=== PATIENT | male | born 1940 | race Caucasian/White ===

== ENCOUNTER 2018-11-30 10:46 | Observation (INO) ==
[2018-11-30] MEDS ORDERED: IOPAMIDOL 100 ML BOTTLE IV ONE (10:47)
--- NOTE | 2018-11-30 11:32 | Emergency Department Note ---
General Adult HPI - General Chief complaint: Bleeding Other Stated complaint: Coughing up blood Time Seen by Provider: 11/30/18 10:49 Source: patient Mode of arrival: ambulatory Limitations: no limitations - History of Present Illness HPI Narrative: Patient seen here 2 days ago for left lower lobe pneumonia and also had some hemoptysis. He is on Xarelto for A. fib. Denies any chest pain is complaining of cough with some shortness of breath denies upper respiratory type signs or symptoms been no nausea vomiting or diarrhea denies any urgency frequency dysuriaTemperature is 96.1 the pulse is 85 respirations are 18 blood pressure 133/77 pulse ox is 96% - Related Data Home Medications Medication Instructions Recorded Confirmed Tiotropium Rozel [Spiriva] 18 mcg INH QDAY 04/26/15 11/30/18 nitroglycerin 0.4 mg sublingual 0.4 mg SUBLINGUAL Q5-15MIN PRN tab 05/02/15 11/30/18 tablet Levalbuterol Tartrate [Xopenex Hfa] 90 mcg INHALATION Q6H g 09/03/15 11/30/18 levalbuterol 1.25 mg/3 mL solution 1.25 mg INHALATION QDAY PRN ml 12/03/15 11/30/18 for nebulization Loratadine [Allerclear] 10 mg PO DAILY 03/03/16 11/30/18 guaiFENesin [Mucus Relief] 400 mg PO TID 03/03/16 11/30/18 omega 8-jtg-pyn-fish oil 1,000 each PO .QD 07/05/16 11/30/18 beclomethasone dipropionate 80 2 puff INHALATION BID g 12/07/17 11/30/18 mcg/actuation aerosol inhaler fluticasone-salmeterol 230 mcg-21 2 puff INHALATION BID g 12/07/17 11/30/18 mcg/actuation HFA aerosol inhaler ferrous sulfate 325 mg (65 mg 325 mg PO QDAY tab 03/17/18 11/30/18 iron) tablet calcium carbonate 500 mg calcium 1,500 mg PO QDAY tab 03/24/18 11/30/18 (1,250 mg) tablet cholecalciferol (vitamin D3) 1,000 1,500 unit PO QDAY tab 06/01/18 02/07/19 unit tablet magnesium 200 mg tablet 400 mg PO QDAY tab 05/02/18 11/30/18 ascorbic acid (vitamin C) 500 mg 500 mg PO TID tab 09/04/18 11/30/18 tablet oxygen 2 unit INH HS 11/30/18 11/30/18 Previous Rx's Medication Instructions Recorded losartan 100 mg tablet 100 mg PO QDAY #90 tab 01/31/18 omeprazole 20 mg capsule,delayed 20 mg PO QDAY #90 cap 03/29/18 release ibandronate 150 mg tablet 150 mg PO QMONTH #4 tab 05/04/18 levothyroxine 25 mcg tablet 25 mcg PO QDAY #90 tab 05/04/18 ezetimibe 10 mg tablet 10 mg PO QDAY #90 tab 06/01/18 ranitidine 300 mg tablet 300 mg PO QHS #90 tab 06/01/18 metformin ER 500 mg 500 mg PO BID #180 tab 06/30/18 tablet,extended release 24 hr tamsulosin 0.4 mg capsule 0.4 mg PO QDAY #30 cap 09/04/18 bupropion HCl XL 150 mg 24 hr 150 mg PO QAM #90 tab 11/06/18 tablet, extended release rivaroxaban 20 mg tablet 20 mg PO QDAY #90 tab 11/06/18 Levofloxacin 500 mg PO DAILY 5 Days #5 tab 11/28/18 Allergies Allergy/AdvReac Type Severity Reaction Status Date / Time benzalkonium chloride Allergy Severe Itching Verified 11/30/18 10:46 [From TRAVATAN] brimonidine [From COMBIGAN] Allergy Severe Itching Verified 11/30/18 10:46 timolol [From COMBIGAN] Allergy Severe Itching Verified 11/30/18 10:46 travoprost [From TRAVATAN] Allergy Severe Itching Verified 11/30/18 10:46 hydrocodone AdvReac Severe unable to Verified 11/30/18 10:46 sleep, loss of appetite and anxiety Environmental Allergies Allergy Unknown Unknown Uncoded 11/28/18 12:53 Review of Systems All systems ED: reviewed and negative except as stated. Constitutional: Denies: fever, chills Eyes: Denies: eye pain ENT ED: Denies: ear pain Cardiovascular: Denies: chest pain Respiratory: Reports: as per HPI, shortness of breath, hemoptysis Gastrointestinal: Denies: abdominal pain, nausea Genitourinary: Denies: dysuria, frequency Musculoskeletal: Denies: back pain, joint swelling Integumentary: Denies: rash, lesions Neurological: Denies: headache, weakness Psychiatric: Denies: anxiety Past Medical History - Past Medical History Medical history: Reports: atrial fibrillation, COPD, DM (type 2 no insulin), hyperlipidemia, hypertension Psychiatric history: Reports: anxiety, depression Surgical history ED: Reports: non-contributory - Social History smoking status: Former smoker Alcohol use: Reports: None Drug use: Reports: none Physical Exam Limitations: no limitations Course Vital Signs Temperature 96.1 F L 11/30/18 10:46 Pulse Rate 85 11/30/18 10:46 Respiratory Rate 18 11/30/18 10:46 Blood Pressure 133/77 11/30/18 10:46 Pulse Oximetry (%) 96 11/30/18 10:46 Temperature 96.1 F L 11/30/18 10:46 Pulse Rate 92 H 11/30/18 14:11 Respiratory Rate 18 11/30/18 10:46 Blood Pressure 118/71 11/30/18 14:11 Pulse Oximetry (%) 96 11/30/18 14:11 Medical Decision Making - [facility] Narrative Medical decision making narrative: Patient initially had refused hospitalization 2 days ago is feeling he is willing to stay at this time he was concerned mostly about his hemoptysis CTA was negativeHis white count is 9300 hemoglobin 13.8 hematocrit 43.1 INR is 1.6 lactic acid is 1.3 chemistries are normal. Chest x-ray shows bilateral infiltrates particular on the left lower lobe. Patient willing to stay at this time to Miller consulted and patient to be admitted for observation. Blood cultures performed 2 days ago are negative thus far - Lab Data Result diagrams: 11/30/18 11:28 Lab Results 11/30/18 11/30/18 11/30/18 Range/Units 11:28 11:28 11:34 WBC 9.3 (4.5-11.0) K/mcL RBC 4.73 (4.50-5.90) M/mcL Hgb 13.8 (13.5-16.5) g/dL Hct 43.1 (41.0-55.0) % POC Hct 44.0 (41.0-55.0) % MCV 91.3 (80.0-100.0) fL MCH 29.3 (26.0-34.0) pg MCHC 32.1 (31.0-36.0) g/dL RDW 14.6 H (11.5-14.5) % Plt Count 217 (140-440) K/mcL MPV 7.9 (7.4-10.4) fL Gran % 73.8 (38.0-78.0) % Lymph % (Auto) 11.6 L (15.5-49.0) % Borden % (Auto) 11.1 (1.0-12.0) % Eos % (Auto) 3.0 (0.0-7.0) % Baso % (Auto) 0.5 (0.0-2.0) % Gran # 6.9 (1.8-8.0) K/mcL Lymph # (Auto) 1.1 L (1.5-4.8) K/mcL Borden # (Auto) 1.0 H (0.1-0.9) K/mcL Eos # (Auto) 0.3 (0.0-0.7) K/mcL Baso # (Auto) 0 (0.0-0.3) K/mcL PT 19.4 H (11.9-14.5) sec INR 1.6 H (0.9-1.1) VBG Lactic Acid (0.5-2.0) mmol/L POC Sodium 138 (133-145) mmol/L POC Potassium 3.4 (3.3-5.1) mmol/L POC Chloride 103 (96-108) mmol/L POC Total CO2 22 (22-30) mmol/L POC BUN 11 (8-23) mg/dl POC Creatinine 0.6 L (0.7-1.2) mg/dl POC Glucose 92 (70-105) mg/dL POC WB Ioniz Calcium 1.15 L (1.16-1.32) mmol/L 11/30/18 Range/Units 11:55 WBC (4.5-11.0) K/mcL RBC (4.50-5.90) M/mcL Hgb (13.5-16.5) g/dL Hct (41.0-55.0) % POC Hct (41.0-55.0) % MCV (80.0-100.0) fL MCH (26.0-34.0) pg MCHC (31.0-36.0) g/dL RDW (11.5-14.5) % Plt Count (140-440) K/mcL MPV (7.4-10.4) fL Gran % (38.0-78.0) % Lymph % (Auto) (15.5-49.0) % Borden % (Auto) (1.0-12.0) % Eos % (Auto) (0.0-7.0) % Baso % (Auto) (0.0-2.0) % Gran # (1.8-8.0) K/mcL Lymph # (Auto) (1.5-4.8) K/mcL Borden # (Auto) (0.1-0.9) K/mcL Eos # (Auto) (0.0-0.7) K/mcL Baso # (Auto) (0.0-0.3) K/mcL PT (11.9-14.5) sec INR (0.9-1.1) VBG Lactic Acid 1.3 (0.5-2.0) mmol/L POC Sodium (133-145) mmol/L POC Potassium (3.3-5.1) mmol/L POC Chloride (96-108) mmol/L POC Total CO2 (22-30) mmol/L POC BUN (8-23) mg/dl POC Creatinine (0.7-1.2) mg/dl POC Glucose (70-105) mg/dL POC WB Ioniz Calcium (1.16-1.32) mmol/L Disposition Pt seen by SYNTHETIC FILAMENT SPINNER/PA only: No Clinical Impression: Left lower lobe pneumonia Qualifiers: Pneumonia type: due to unspecified organism Qualified Code(s): J18.1 - Lobar pneumonia, unspecified organism Disposition: Xfer As Outpt/Obs ([facility]) Condition: Fair Referrals: Kirill Mccray MD [Primary Care Provider] - Time of Disposition: 14:30
--- NOTE | 2018-11-30 11:46 | XRay Report ---
HISTORY: Hemoptysis FINDINGS: There is a moderate-sized alveolar infiltrate in the left lower lobe. Subtle infiltrates are present in the right lower lobe and around both isabella. These are superimposed upon underlying COPD. The heart size is normal. There is a tiny left-sided pleural effusion. There has been no significant change since 11/28/18. IMPRESSION: Bilateral infiltrates with the greatest involvement in the left lower lobe. There has been no significant change Interpreted and Authenticated by: Lamine Camejo 11/30/18
[2018-11-30 11:56] LABS: Basophils # (Auto) 0 K/mcL (0.0-0.3); Basophils % (Auto) 0.5 % (0.0-2.0); Eosinophils # (Auto) 0.3 K/mcL (0.0-0.7); Granulocytes % (Auto) 73.8 % (38.0-78.0); Lymphocytes # (Auto) 1.1 K/mcL (1.5-4.8); Lymphocytes % (Auto) 11.6 % (15.5-49.0); Mean Cell Volume 91.3 fL (80.0-100.0); Mean Corpuscular HGB Conc 32.1 g/dL (31.0-36.0); Monocytes % (Auto) 11.1 % (1.0-12.0); Platelet Count 217 K/mcL (140-440); RBC 4.73 M/mcL (4.50-5.90); Red Cell Distribution Width 14.6 % (11.5-14.5)
--- NOTE | 2018-11-30 12:02 | Cat Scan Report ---
CLINICAL INFORMATION: Hemoptysis COMPARISON: 07/07/16 TECHNIQUE: Axial images obtained through the chest. intravenous contrast administration was administered, and scanning was performed during pulmonary arterial phase. Sagittally and coronally reformatted images were obtained. MIP reformatted images. The radiation exposure was limited using dose reduction technology. FINDINGS: The pulmonary arteries are normal with no intraluminal filling defects. The aorta is normal in caliber. There are scattered plaques along the wall of the aorta and in the coronary arteries. The heart is within upper limits of normal in size. Patient has mild to moderate centrilobular emphysema with the greatest involvement in the upper lobes. There is a moderate size consolidating infiltrate throughout the left lung. This has a patchy distribution. There is no apparent underlying mass. Bronchial partida in the left lung base are thickened due to inflammation. There is mild mucous plugging in some of the peripheral branches. A small layering left-sided pleural effusion is present. There is mild interstitial fibrosis centrally in the right lung which simulated a small infiltrate in the preceding chest x-ray. There are stable noncalcified peripheral lung nodules in the right middle lobe and anteriorly in the right lower lobe. The measure up to 5 mm in size. The have not enlarged since 2016 and represent incidental granulomata. There are a few reactive lymph nodes in the mediastinum. The largest is in the subcarinal space and measures 1.7 x 2.9 cm. There are small lymph nodes in both isabella. Lymphadenopathy was not seen in 2016. In the upper pole of left kidney there is a cyst which measures 2.8 cm. This has not enlarged. IMPRESSION: No evidence of pulmonary emboli Moderate left lower lobe pneumonia with associated lymphadenopathy Emphysema Small layering left-sided pleural effusion Ida Kathy was called with the results Interpreted and Authenticated by: Lamine Camejo 11/30/18
[2018-11-30] MEDS ORDERED: cefTRIAXone 1 GM in DEXTROSE 5% IN WATER 50 ML IV ONE (12:10)
[2018-11-30] MEDS ORDERED: LEVOFLOXACIN 500 MG/100 ML BAG IV ONE (12:10)
[2018-11-30] MEDS ORDERED: ACETAMINOPHEN 325 MG TABLET PO PRN (17:18)
[2018-11-30] MEDS ORDERED: DEXTROSE 31 GM ORAL.SUSP PO PRN (17:18)
[2018-11-30] MEDS ORDERED: LEVALBUTEROL 1.25 MG/3 ML AMPUL.NEB NEB PRN (17:18)
[2018-11-30] MEDS ORDERED: 0.9 % SODIUM CHLORIDE 1,000 ML IV SCH (17:18)
[2018-11-30] MEDS ORDERED: ONDANSETRON 4 MG/2 ML VIAL IV PRN (17:18)
[2018-11-30] MEDS ORDERED: DEXTROSE 50% 50 ML VIAL IV PRN (17:18)
[2018-11-30] MEDS: INSULIN LISPRO 1 UNIT/0.01 ML UNIT SQ SCH ×2 (17:29→21:02)
[2018-11-30] MEDS: AZITHROMYCIN 500 MG in DEXTROSE 5% IN WATER 250 ML IV SCH (17:52)
[2018-11-30 20:10] LABS: Estimated Average Glucose(eAG) 120 mg/dL; Hemoglobin A1C 5.8 % HGB (4.0-6.0)
[2018-11-30] MEDS ORDERED: OXYGEN 2 UNIT INH SCH (21:00)
[2018-11-30] MEDS: guaiFENesin 600 MG TAB.SR.12H PO SCH (21:01)
[2018-11-30] MEDS: DOCUSATE SODIUM 100 MG CAPSULE PO SCH (21:01)
[2018-11-30] MEDS: FLUTICASONE/SALMETEROL 250/50 INHALER #14 INH SCH (21:03)
[2018-11-30] MEDS: 0.9 % SODIUM CHLORIDE 10 ML SYRINGE IV SCH (21:07)
--- NOTE | 2018-11-30 22:06 | Internal Med History&Physical ---
Medical - H&P: HPI Patient information: Note initiated : 11/30/18 at 10:04 pm Service Date, if different from initiated Date: [] Patient: Nishant Billings a 78 y/o M admitted on 11/30/18 for Coughing Up Blood. Chief Complaint: dyspnea, hemoptysis History of present illness: Mr. Billings is a 78 year old M with a history of COPD, type 2 diabetes mellitus, hypertension, atrial fibrillation on Xarelto, BPH who presents to the ED with hemoptysis. Patient felt well on Tuesday, however that evening after a hot bath, felt "woozy" and was found to have fever of [id number]. He went to see Dr. Mccray, his primary care physician, who ordered labs. He is called later that late afternoon to report to the ED, as he had evidence of pneumonia. He is seen in the ED, received initial dose of antibiotics as well as sent home with levofloxacin. On Tuesday and noticed some blood in his urine, and coughed up about a quarter-sized piece of sputum with red blood in it. He subsequently was producing sputum and the amount of blood tapered. His chronic cough with some chronic sputum production on a daily basis. This morning, , again he developed hemoptysis. He came back to the emergency department. Patient has no prior history of hemoptysis. He is on Xarelto for atrial fibrillation. He had a low-grade temp to 99 last night. He denies any chest pain with respiration. Does note that his chest feels a little tight when trying to take in respiration. He's had no further hematuria. He did note a little bit of blood from his nose this morning, but was unaware of any epistaxis yesterday. In the emergency department, he was hemodynamically stable, normal oxygen saturations, normal white count, though radiograph appeared to be somewhat worsened. He underwent CTA of the chest to rule out lesion causing hemoptysis, which was negative, though left lower lobe infiltrate was again noted. Dr. Tavarez contacted the hospitalist service about hospitalizing the patient to make sure he will improve and not worsen, having somewhat failed outpatient therapy with worsening radiograph and new hemoptysis. 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) Anemia (Chronic) Arrhythmia (Chronic) Lightheaded (Chronic) Atypical chest pain (Resolved) Biceps tendon rupture, proximal (Chronic) Overweight (Chronic) Metabolic Syndrome X (Chronic) Nasal polyposis (Chronic) Hypercholesterolemia (Chronic) Dysphagia (Chronic) Multiple pulmonary nodules (Chronic) Pyuria (Resolved) Visual changes (Resolved) Tinea pedis (Chronic) Testicular nodule (Chronic) Sinusitis, chronic (Chronic) Fracture, scapula closed (Resolved) Rhinitis, allergic (Chronic) Reactive airway disease (Chronic) Pseudophakia (Chronic) Prostatitis, acute (Resolved) PVD (peripheral vascular disease) (Chronic) Osteoarthritis (Chronic) Orchitis and epididymitis (Chronic) Open-angle glaucoma (Chronic) Onychomycosis (Chronic) REBECCA (obstructive sleep apnea) (Chronic) Nocturia (Chronic) Myalgia (Chronic) Dysmetabolic syndrome X (Chronic) Leukocytosis (Resolved) Hypertrophy of prostate without urinary obstruction (Chronic) Hypertension, essential (Chronic) Hyperlipidemia (Chronic) Hernia, umbilical (Chronic) Hernia, inguinal (Chronic) Hernia, femoral (Chronic) Hematuria, gross (Resolved) Hearing loss (Chronic) Glaucoma (Chronic) Gastroesophageal reflux (Chronic) Erectile dysfunction (Chronic) Elevated CK (Chronic) Dyspnea (Chronic) DM type 2 (diabetes mellitus, type 2) (Chronic) Deviated nasal septum (Resolved) Depression (Chronic) Colon adenoma (Chronic) COPD (chronic obstructive pulmonary disease) (Chronic) Cardiomegaly (Chronic) Benign prostatic hypertrophy with lower urinary tract symptoms (LUTS) (Chronic) Blepharitis (Chronic) Jon's esophagus (Chronic) Asthma (Chronic) Arthralgia (Chronic) After-cataract obscuring vision (Chronic) Surgical history: History of transurethral resection of prostate (Resolved) History of shoulder surgery (Resolved) History of sinus surgery (Resolved) History of parotidectomy (Resolved) History of umbilical hernia repair (Resolved) History of inguinal hernia repair (Resolved) History of esophagogastroduodenoscopy (Resolved 10/07/15) Status post correction of deviated nasal septum (Resolved) History of colonoscopy (Resolved) History of cholecystectomy (Resolved) History of cataract surgery (Resolved) History of arthroscopy of right knee (Resolved) History of arthroscopy of left knee (Resolved) History of penile implant (Resolved) Pertinent family history: Father Acute myocardial infarction Mother Malignant neoplasm of uterus Social history: The patient lives with his , is a former smoker. Does not drink alcohol. Medical - H&P: Meds Home Medications Medication Instructions Recorded Confirmed Type Tiotropium Cosmos [Spiriva] 18 mcg INH QDAY 04/26/15 11/30/18 History nitroglycerin 0.4 mg sublingual 0.4 mg SUBLINGUAL Q5-15MIN PRN tab 05/02/15 11/30/18 History tablet Levalbuterol Tartrate [Xopenex Hfa] 90 mcg INHALATION Q6H g 09/03/15 11/30/18 History levalbuterol 1.25 mg/3 mL solution 1.25 mg INHALATION QDAY PRN ml 12/03/15 11/30/18 History for nebulization Loratadine [Allerclear] 10 mg PO DAILY 03/03/16 11/30/18 History guaiFENesin [Mucus Relief] 400 mg PO TID 03/03/16 11/30/18 History omega 0-gut-djr-fish oil 1,000 each PO .QD 07/05/16 11/30/18 History beclomethasone dipropionate 80 2 puff INHALATION BID g 12/07/17 11/30/18 History mcg/actuation aerosol inhaler fluticasone-salmeterol 230 mcg-21 2 puff INHALATION BID g 12/07/17 11/30/18 History mcg/actuation HFA aerosol inhaler losartan 100 mg tablet 100 mg PO QDAY #90 tab 01/31/18 11/30/18 Rx ferrous sulfate 325 mg (65 mg 325 mg PO QDAY tab 03/17/18 11/30/18 History iron) tablet calcium carbonate 500 mg calcium 1,500 mg PO QDAY tab 03/24/18 11/30/18 History (1,250 mg) tablet cholecalciferol (vitamin D3) 1,000 1,500 unit PO QDAY tab 03/24/18 11/30/18 History unit tablet omeprazole 20 mg capsule,delayed 20 mg PO QDAY #90 cap 03/29/18 11/30/18 Rx release magnesium 200 mg tablet 400 mg PO QDAY tab 05/02/18 11/30/18 History ibandronate 150 mg tablet 150 mg PO QMONTH #4 tab 05/04/18 11/30/18 Rx levothyroxine 25 mcg tablet 25 mcg PO QDAY #90 tab 05/04/18 11/30/18 Rx ezetimibe 10 mg tablet 10 mg PO QDAY #90 tab 06/01/18 11/30/18 Rx ranitidine 300 mg tablet 300 mg PO QHS #90 tab 06/01/18 11/30/18 Rx metformin ER 500 mg 500 mg PO BID #180 tab 06/30/18 11/30/18 Rx tablet,extended release 24 hr ascorbic acid (vitamin C) 500 mg 500 mg PO TID tab 09/04/18 11/30/18 History tablet tamsulosin 0.4 mg capsule 0.4 mg PO QDAY #30 cap 09/04/18 11/30/18 Rx bupropion HCl XL 150 mg 24 hr 150 mg PO QAM #90 tab 11/06/18 11/30/18 Rx tablet, extended release rivaroxaban 20 mg tablet 20 mg PO QDAY #90 tab 11/06/18 11/30/18 Rx Levofloxacin 500 mg PO DAILY 5 Days #5 tab 11/28/18 11/30/18 Rx oxygen 2 unit INH HS 11/30/18 11/30/18 History Allergies Allergy/AdvReac Type Severity Reaction Status Date / Time hydrocodone AdvReac Intermediate unable to Verified 11/30/18 17:20 sleep, loss of appetite and anxiety benzalkonium chloride AdvReac Mild Itching Verified 11/30/18 17:20 [From TRAVATAN] brimonidine [From COMBIGAN] AdvReac Mild Itching Verified 11/30/18 17:20 timolol [From COMBIGAN] AdvReac Mild Itching Verified 11/30/18 17:20 travoprost [From TRAVATAN] AdvReac Mild Itching Verified 11/30/18 17:20 Medical - H&P: Exam - Constitutional Vitals: Temp Pulse Resp BP Pulse Ox 97.8 F 80 16 128/70 95 11/30/18 19:30 11/30/18 21:32 11/30/18 21:32 11/30/18 19:30 11/30/18 19:30 Medical - H&P: Reslt - Labs CBC & Chem 7: 12/01/18 04:05 12/01/18 04:05 Labs: Short CBC 11/30/18 Range/Units 11:28 WBC 9.3 (4.5-11.0) K/mcL Hgb 13.8 (13.5-16.5) g/dL Hct 43.1 (41.0-55.0) % Plt Count 217 (140-440) K/mcL Medical - H&P: A/P - Narrative A/P Narrative: 78-year-old male with recently diagnosed community-acquired pneumonia, rep resents with hemoptysis. Concern in the ED for worsening radiograph. Community-acquired pneumonia. Radiographic changes may be due to lag with clinical improvement. No hypoxemia, no fever, no tachycardia, no tachypnea and normal white count currently. Lactate is normal. Plan: Hospitalize on observation Changed to ceftriaxone and azithromycin Send urinary strep pneumo antigen, Legionella antigen and mycoplasma IgM Hemoptysis. May be bronchial irritation from pneumonia combined with anticoa gulation with Xarelto. Does not appear to have had significant blood loss. No lesions noted on CT of the chest. If continues, may need consultation from pulmonary Plan: Monitor. At this point we'll continue Xarelto, as needed for stroke prophylaxis from atrial fibrillation. Atrial fibrillation. Rate controlled. Plan: Continue home regimen including Xarelto. Type 2 diabetes mellitus. Plan: Controlled carbohydrate diet, sliding scale insulin, hold metformin as he's received dye load. COPD, no current evidence of bronchospasm. Plan: Continue home regimen CODE STATUS full code. Prophylaxis: Xarelto Medical - H&P: Qual - VTE Deep Vein Thrombosis/Pulmonary Embolism Present on Admission: No
[2018-12-01] MEDS: 0.9 % SODIUM CHLORIDE 10 ML SYRINGE IV SCH (04:44)
[2018-12-01 06:17] LABS: Basophils # (Auto) 0 K/mcL (0.0-0.3); Basophils % (Auto) 0.4 % (0.0-2.0); Eosinophils # (Auto) 0.6 K/mcL (0.0-0.7); Eosinophils % (Auto) 6.9 % (0.0-7.0); Granulocytes % (Auto) 61.3 % (38.0-78.0); Lymphocytes # (Auto) 1.6 K/mcL (1.5-4.8); Lymphocytes % (Auto) 19.4 % (15.5-49.0); Mean Cell Volume 90.9 fL (80.0-100.0); Mean Corpuscular HGB Conc 32.5 g/dL (31.0-36.0); Platelet Count 242 K/mcL (140-440); RBC 4.51 M/mcL (4.50-5.90); Red Cell Distribution Width 14.1 % (11.5-14.5)
[2018-12-01 06:34] LABS: Blood Urea Nitrogen 10 mg/dl (8-23)
[2018-12-01] MEDS: INSULIN LISPRO 1 UNIT/0.01 ML UNIT SQ SCH ×2 (07:11→13:11)
[2018-12-01] MEDS ORDERED: LEVOTHYROXINE 25 MCG TABLET PO SCH (07:30)
[2018-12-01] MEDS ORDERED: OMEPRAZOLE 20 MG CAPSULE PO SCH (07:30)
[2018-12-01] MEDS ORDERED: TAMSULOSIN 0.4 MG CAPSULE PO SCH (09:00)
[2018-12-01] MEDS ORDERED: LOSARTAN 50 MG TABLET PO SCH (09:00)
[2018-12-01] MEDS ORDERED: LORATADINE 10 MG TABLET PO SCH (09:00)
[2018-12-01] MEDS ORDERED: TIOTROPIUM BROMIDE 18 MCG INHALANT INH SCH (09:00)
[2018-12-01] MEDS ORDERED: cefTRIAXone 1 GM VIAL IV SCH (09:00)
[2018-12-01] MEDS ORDERED: buPROPion 150 MG TAB.XL.24H PO SCH (09:00)
[2018-12-01] MEDS ORDERED: EZETIMIBE 10 MG TABLET PO SCH (09:00)
[2018-12-01] MEDS: AZITHROMYCIN 500 MG in DEXTROSE 5% IN WATER 250 ML IV SCH (09:58)
[2018-12-01] MEDS: FLUTICASONE/SALMETEROL 250/50 INHALER #14 INH SCH (09:58)
[2018-12-01] MEDS: RIVAROXABAN 20 MG TABLET PO SCH ×2 (10:11→13:06)
[2018-12-01] MEDS: DOCUSATE SODIUM 100 MG CAPSULE PO SCH (10:13)
[2018-12-01] MEDS: guaiFENesin 600 MG TAB.SR.12H PO SCH (10:14)
--- NOTE | 2018-12-01 10:38 | Discharge Summary ---
Medical - DS: Prov Patient information: Note initiated : 12/01/18 at 10:36 am Service Date, if different from initiated Date: [] Patient: Nishant Billings 78 y/o M admitted on 11/30/18 for Coughing Up Blood. Date of admission: 11/30/18 17:15 Discharge date: 12/01/18 Primary care physician: Kirill Mccray Admitting clinician: Sandy Kim Consults: 11/30/18 Consult to Physician [CONS] Stat Comment: Consulting Provider: Sandy Kim Reason For Exam: Physician to Consult Discharging clinician: Sandy Kim Medical - DS: Meds - Discharge Medications Prescriptions: Cefdinir 300 mg PO BID #14 capsule Active and Home Medications: Home Medications Tiotropium [place] [Spiriva] 18 mcg INH QDAY 04/26/15 [History Confirmed 11/30/18 Last Taken 04/20/17 08:00] nitroglycerin 0.4 mg sublingual tablet 0.4 mg SUBLINGUAL Q5-15MIN PRN tab 05/02/15 [History Confirmed 11/30/18 Last Taken 04/20/17 08:00] Levalbuterol Tartrate [Xopenex Hfa] 90 mcg INHALATION Q6H g 09/03/15 [History Confirmed 11/30/18 Last Taken 04/20/17 08:00] levalbuterol 1.25 mg/3 mL solution for nebulization 1.25 mg INHALATION QDAY PRN ml 12/03/15 [History Confirmed 11/30/18 Last Taken 04/20/17 08:00] Loratadine [Allerclear] 10 mg PO DAILY 03/03/16 [History Confirmed 11/30/18 Last Taken 04/20/17 08:00] guaiFENesin [Mucus Relief] 400 mg PO TID 03/03/16 [History Confirmed 11/30/18 Last Taken 04/20/17 08:00] omega 8-rls-kig-fish oil 1,000 each PO .QD 07/05/16 [History Confirmed 11/30/18 Last Taken 04/20/17 08:00] beclomethasone dipropionate 80 mcg/actuation aerosol inhaler 2 puff INHALATION BID g 12/07/17 [History Confirmed 11/30/18 Last Taken Unknown] fluticasone-salmeterol 230 mcg-21 mcg/actuation HFA aerosol inhaler 2 puff INHALATION BID g 12/07/17 [History Confirmed 11/30/18 Last Taken Unknown] losartan 100 mg tablet 100 mg PO QDAY #90 tab 01/31/18 [Rx Confirmed 11/30/18 Last Taken Unknown] ferrous sulfate 325 mg (65 mg iron) tablet 325 mg PO QDAY tab 03/17/18 [History Confirmed 11/30/18 Last Taken Unknown] calcium carbonate 500 mg calcium (1,250 mg) tablet 1,500 mg PO QDAY tab 03/24/18 [History Confirmed 11/30/18 Last Taken Unknown] cholecalciferol (vitamin D3) 1,000 unit tablet 1,500 unit PO QDAY tab 03/24/18 [History Confirmed 11/30/18 Last Taken Unknown] omeprazole 20 mg capsule,delayed release 20 mg PO QDAY #90 cap 03/29/18 [Rx Confirmed 11/30/18 Last Taken Unknown] magnesium 200 mg tablet 400 mg PO QDAY tab 05/02/18 [History Confirmed 11/30/18 Last Taken Unknown] ibandronate 150 mg tablet 150 mg PO QMONTH #4 tab 05/04/18 [Rx Confirmed 11/30/18 Last Taken Unknown] levothyroxine 25 mcg tablet 25 mcg PO QDAY #90 tab 05/04/18 [Rx Confirmed 11/30/18 Last Taken Unknown] ezetimibe 10 mg tablet 10 mg PO QDAY #90 tab 06/01/18 [Rx Confirmed 11/30/18 Last Taken Unknown] ranitidine 300 mg tablet 300 mg PO QHS #90 tab 06/01/18 [Rx Confirmed 11/30/18 Last Taken Unknown] metformin ER 500 mg tablet,extended release 24 hr 500 mg PO BID #180 tab 06/30/18 [Rx Confirmed 11/30/18 Last Taken Unknown] ascorbic acid (vitamin C) 500 mg tablet 500 mg PO TID tab 09/04/18 [History Confirmed 11/30/18 Last Taken Unknown] tamsulosin 0.4 mg capsule 0.4 mg PO QDAY #30 cap 09/04/18 [Rx Confirmed 11/30/18 Last Taken Unknown] bupropion HCl XL 150 mg 24 hr tablet, extended release 150 mg PO QAM #90 tab 11/06/18 [Rx Confirmed 11/30/18 Last Taken Unknown] rivaroxaban 20 mg tablet 20 mg PO QDAY #90 tab 11/06/18 [Rx Confirmed 11/30/18 Last Taken Unknown] Levofloxacin 500 mg PO DAILY 5 Days #5 tab 11/28/18 [Rx Confirmed 11/30/18 Last Taken Unknown] oxygen 2 unit INH HS 11/30/18 [History Confirmed 11/30/18 Last Taken Unknown] Medical - DS: Hosp Hospital course: Presentation: Mr. Billings is a 78 year old M with a history of COPD, type 2 diabetes mellitus, hypertension, atrial fibrillation on Xarelto, BPH who presents to the ED with hemoptysis. Patient felt well on Tuesday, however that evening after a hot bath, felt "woozy" and was found to have fever of [id number]. He went to see Dr. Mccray, his primary care physician, who ordered labs. He is called later that late afternoon to report to the ED, as he had evidence of pneumonia. He is seen in the ED, received initial dose of antibiotics as well as sent home with levofloxacin. On Tuesday and noticed some blood in his urine, and coughed up about a quarter-sized piece of sputum with red blood in it. He subsequently was producing sputum and the amount of blood tapered. His chronic cough with some chronic sputum production on a daily basis. This morning, , again he developed hemoptysis. He came back to the emergency department. Patient has no prior history of hemoptysis. He is on Xarelto for atrial fibrillation. He had a low-grade temp to 99 last night. He denies any chest pain with respiration. Does note that his chest feels a little tight when trying to take in respiration. He's had no further hematuria. He did note a little bit of blood from his nose this morning, but was unaware of any epistaxis yesterday. In the emergency department, he was hemodynamically stable, normal oxygen saturations, normal white count, though radiograph appeared to be somewhat worsened. He underwent CTA of the chest to rule out lesion causing hemoptysis, which was negative, though left lower lobe infiltrate was again noted. Course: The patient was stable overnight. He was afebrile, vital signs were normal. He had no oxygen requirement. Patient did have some bloody streaking with his sputum. He also noticed minor streaking more blowing his nose. He had a small amount of bright blood on a normal bowel movement. He had no further hematuria. Hemoglobin remained stable. Suspect this is secondary to his Xarelto therapy. On initial research, no interaction between levofloxacin and Xarelto was uncovered, however this seemed to coincide with starting levofloxacin. That was stopped at admission, he received cefdinir to finish his antibiotic therapy for his left lower lobe pneumonia. Mycoplasma IgM was negative, lower suspicion for atypicals. I've asked him to hold his Xarelto for the next 2-3 days. He will also hold his metformin for the next 24 hours, as he had IV contrast on 11/30. Discharge diagnosis: Hemoptysis, community-acquired pneumonia Secondary discharge diagnosis: Atrial fibrillation Chronic Xarelto anticoagulation COPD - Time Spent with Patient Total time spent providing and/or coordinating discharge services: Less than 30 minutes Medical - DS: Exam - Constitutional Vitals: Vital Signs Temp Pulse Pulse Resp BP BP Pulse Ox 12/01/18 08:00 98.3 F 77 20 145/85 93 12/01/18 04:00 97.3 F 86 20 132/78 90 11/30/18 23:20 97.9 F 86 22 131/67 95 11/30/18 21:32 80 16 11/30/18 21:27 80 16 11/30/18 19:30 97.8 F 80 20 128/70 95 11/30/18 17:21 96.1 F L 79 18 130/77 95 11/30/18 17:15 97.9 F 88 18 142/83 96 11/30/18 15:14 79 130/77 95 11/30/18 15:01 81 130/77 95 11/30/18 14:46 142/86 11/30/18 14:31 89 131/72 95 11/30/18 14:16 75 116/77 95 11/30/18 14:11 92 H 118/71 96 11/30/18 14:01 83 118/71 94 11/30/18 13:46 78 120/72 95 11/30/18 13:31 88 121/80 95 11/30/18 13:16 86 120/72 93 11/30/18 13:01 87 130/75 93 11/30/18 10:46 96.1 F L 85 18 133/77 96 Intake and Output 11/30/18 12/01/1812/01/19 21:59 05:59 13:59 Intake Total 250 700 Output Total 1525 Balance 250 -825 Intake: IV 250 Zithromax 500 mg In Dextrose 5% 250 in Water 250 ml @ 250 mls/hr IV Q24H [facility] Rx#:[id number] Oral 700 Output: Void Amount 1525 Other: Meal Nourishment/Supplement Percent of Meal Consumed 100% Feeding Ability Independent Nourishment/Supplement name nasreen solano Urine Appearance Clear Clear Cloudy Urine Color Light Jennifer Bright Yellow Urine Odor Normal Normal Weight 212 lb 1.6 oz Additional comments: General: Sitting in bed, speaking in full sentences, no acute distress Chest: Faint left basal rales persist, respirations are unlabored, otherwise clear without wheezing Cardiovascular: Irregular, no murmur noted, no edema Abdomen: Soft, nontender Neuro: Alert, oriented to person, place situation, moves all extremities with out focal deficit. Medical - DS: Data Labs on day of discharge: Labs from last 24 hours 12/01/18 12/01/18 11/30/18 04:05 04:05 17:30 WBC 8.1 RBC 4.51 Hgb 13.3 L Hct 41.0 POC Hct MCV 90.9 MCH 29.6 MCHC 32.5 RDW 14.1 Plt Count 242 MPV 8.1 Gran % 61.3 Lymph % (Auto) 19.4 [place] % (Auto) 12.0 Eos % (Auto) 6.9 Baso % (Auto) 0.4 Gran # 5.0 Lymph # (Auto) 1.6 [place] # (Auto) 1.0 H Eos # (Auto) 0.6 Baso # (Auto) 0 PT INR VBG Lactic Acid POC Sodium Sodium 141 POC Potassium Potassium 3.6 POC Chloride Chloride 107 Carbon Dioxide 24 POC Total CO2 Anion Gap 10.0 POC BUN BUN 10 Creatinine 0.9 POC Creatinine GFR Calculation 83 Glucose 101 POC Glucose Hemoglobin A1c Estim Average Glucose Calcium 9.0 POC WB Ioniz Calcium Urine Legionella Ag Mycoplasma pneumon IgM Negative S. pneumoniae Antigen Ur Strep pneumoniae Ag Specimen Type 11/30/18 11/30/18 11/30/18 17:30 17:00 17:00 WBC RBC Hgb Hct POC Hct MCV MCH MCHC RDW Plt Count MPV Gran % Lymph % (Auto) [place] % (Auto) Eos % (Auto) Baso % (Auto) Gran # Lymph # (Auto) [place] # (Auto) Eos # (Auto) Baso # (Auto) PT INR VBG Lactic Acid POC Sodium Sodium POC Potassium Potassium POC Chloride Chloride Carbon Dioxide POC Total CO2 Anion Gap POC BUN BUN Creatinine POC Creatinine GFR Calculation Glucose POC Glucose Hemoglobin A1c 5.8 Estim Average Glucose 120 Calcium POC WB Ioniz Calcium Urine Legionella Ag Mycoplasma pneumon IgM S. pneumoniae Antigen Pending Ur Strep pneumoniae Ag Negative Specimen Type Pending 11/30/18 11/30/18 11/30/18 17:00 11:55 11:34 WBC RBC Hgb Hct POC Hct MCV MCH MCHC RDW Plt Count MPV Gran % Lymph % (Auto) [place] % (Auto) Eos % (Auto) Baso % (Auto) Gran # Lymph # (Auto) [place] # (Auto) Eos # (Auto) Baso # (Auto) PT 19.4 H INR 1.6 H VBG Lactic Acid 1.3 POC Sodium Sodium POC Potassium Potassium POC Chloride Chloride Carbon Dioxide POC Total CO2 Anion Gap POC BUN BUN Creatinine POC Creatinine GFR Calculation Glucose POC Glucose Hemoglobin A1c Estim Average Glucose Calcium POC WB Ioniz Calcium Urine Legionella Ag Pending Mycoplasma pneumon IgM S. pneumoniae Antigen Ur Strep pneumoniae Ag Specimen Type 11/30/18 11/30/18 11:28 11:28 WBC 9.3 RBC 4.73 Hgb 13.8 Hct 43.1 POC Hct 44.0 MCV 91.3 MCH 29.3 MCHC 32.1 RDW 14.6 H Plt Count 217 MPV 7.9 Gran % 73.8 Lymph % (Auto) 11.6 L [place] % (Auto) 11.1 Eos % (Auto) 3.0 Baso % (Auto) 0.5 Gran # 6.9 Lymph # (Auto) 1.1 L [place] # (Auto) 1.0 H Eos # (Auto) 0.3 Baso # (Auto) 0 PT INR VBG Lactic Acid POC Sodium 138 Sodium POC Potassium 3.4 Potassium POC Chloride 103 Chloride Carbon Dioxide POC Total CO2 22 Anion Gap POC BUN 11 BUN Creatinine POC Creatinine 0.6 L GFR Calculation Glucose POC Glucose 92 Hemoglobin A1c Estim Average Glucose Calcium POC WB Ioniz Calcium 1.15 L Urine Legionella Ag Mycoplasma pneumon IgM S. pneumoniae Antigen Ur Strep pneumoniae Ag Specimen Type - Imaging and Cardiology CT scan - chest Additional comments: IMPRESSION: No evidence of pulmonary emboli Moderate left lower lobe pneumonia with associated lymphadenopathy Emphysema Small layering left-sided pleural effusion Medical - DS: A/P - Patient/Caregiver Discharge Instructions Activity: increase activity as tolerated Diet: Consistent Carbohydrate Additional Instructions: Do not take your Xarelto for the next 1-2 days. If you continue to have blood- tinged sputum, continue to hold the Xarelto until you see Dr. Mccray Resume your metformin on 12/02. - Follow up Plan Follow up with: Kirill Mccray MD [Primary Care Provider] - Disposition: Home, Self-Care Prognosis: Good Rehab Potential: Good Overall status at discharge: patient is progressing back to baseline Medical - DS: Qual - VTE Deep Vein Thrombosis/Pulmonary Embolism Present on Admission: No
[2018-12-01] MEDS ORDERED: cefTRIAXone 1 GM in DEXTROSE 5% IN WATER 50 ML IV SCH (12:00)
== END 2018-12-01 13:07 | disposition home or self-care (01) ==
LOC: MEDSUR 10:46 → ED 10:46 → MEDSUR 17:22
PROVIDERS: ADMIT Internal Medicine; ATTEND Internal Medicine